=== PATIENT | male | born 1970 | race Hispanic/Latino ===

== ENCOUNTER 2022-01-25 07:49 | Emergency (ER) | payer BC ==
[~2022-01-25] VITALS: Ht 167.6 cm; Wt 63.5 kg
[2022-01-25 08:37] LABS: BASOPHILS % 0.4 % (0.0-1.0); EOSINOPHILS % 0.3 % (0.0-6.0); HEMOGLOBIN 15.5 g/dL (14.0-18.0); LYMPHOCYTES # (AUTO) 0.7 (1.0-3.2); LYMPHOCYTES % 6.5 % (18.0-39.1); MEAN CORPUSCULAR HEMOGLOBIN 31.9 pg (28-32); MEAN CORPUSCULAR HGB CONC 35.2 g/dL (31-35); MEAN CORPUSCULAR VOLUME 90.5 fL (81-99); MONOCYTES # (AUTO) 0.6 (0.2-0.8); NEUTROPHILS % 86.4 % (38.7-80.0); PLATELET COUNT 200 x10e3/uL (140-360); RED BLOOD COUNT 4.86 x10e6/uL (4.3-5.7); RED CELL DISTRIBUTION WIDTH 12.5 % (11.7-14.4)
[2022-01-25 08:43] LABS: CLARITY,URINE CLEAR (CLEAR); COLOR,URINE YELLOW (YELLOW); KETONES,URINE NEGATIVE (NEGATIVE); LEUKOCYTE ESTERASE ,URINE NEGATIVE (NEGATIVE); NITRITE,URINE NEGATIVE (NEGATIVE); PROTEIN,URINE DIPSTICK NEGATIVE (NEGATIVE); URINE UROBILINOGEN 0.2 mg/dL (0.2 - 1)
[2022-01-25] MEDS ORDERED: ACETAMINOPHEN 325 MG TAB PO ONE (08:45)
[2022-01-25 08:56] LABS: BACTERIA,URINE RARE /HPF
[2022-01-25 08:57] LABS: AMORPHOUS SEDIMENT,URINE FEW (FEW); CALCIUM 9.3 mg/dL (8.4-10.2)
[2022-01-25 12:45] VITALS: BP 147/91
[2022-01-25] MEDS ORDERED: NAPROXEN250 MG PO (13:11)
[2022-01-25] MEDS ORDERED: METHOCARBAMOL500 MG PO (13:15)
== END 2022-01-25 13:32 | disposition home or self-care (01) ==
LOC: ER 08:10
DX: R10.31 Right lower quadrant pain (principal); S39.011A Strain of muscle, fascia and tendon of abdomen, initial encounter; X50.0XXA Overexertion from strenuous movement or load, initial encounter; Y93.89 Activity, other specified
CPT/HCPCS: 36415; 76870; 80053; 81001; 85025; 87086; 93976; 99284